=== PATIENT | female | born 1955 | race Two or more races ===

== ENCOUNTER 2024-06-09 10:39 | Outpatient (CLI) | payer OTHER | END 2024-06-09 10:41 | disposition home or self-care (01) | LOC: RAD 10:39 | PROVIDERS: ATTEND Orthopaedic Surgery | DX: M25.561 Pain in right knee (principal); M25.562 Pain in left knee; Z76.89 Persons encountering health services in other specified circumstances ==

== ENCOUNTER → 2024-08-02 09:20 | Outpatient (CLI) | payer OTHER ==
[2024-08-02 10:16] LABS: HEMATOCRIT 37.6 % (36.0-45.00); HEMOGLOBIN 12.7 g/dL (12.0-15.00); MEAN CELL VOLUME 96.6 fL (80.00-100.00); MEAN CORPUSCULAR HEMOGLOBIN 32.6 pg (27.00-32.0); MEAN CORPUSCULAR HGB CONC 33.7 g/dl (32.0-36.0); PLATELET COUNT 334 K/uL (150-450); RED BLOOD COUNT 3.89 M/uL (4.00-6.00); RED CELL DISTRIBUTION WIDTH 13.4 % (11.5-14.5)
[2024-08-02 10:31] LABS: COL EPI 122 SECONDS (82-175)
[2024-08-02 10:42] LABS: INR 1.05; PARTIAL THROMBOPLASTIN TIME 26.8 SECONDS (22.0-34.0); PROTHROMBIN TIME 11.4 SECONDS (9.0-11.5)
[2024-08-02 11:05] LABS: URINE APPEARANCE Clear; URINE BILIRRUBIN Negative (NEGATIVE); URINE BLOOD Negative; URINE COLOR Yellow; URINE GLUCOSE Negative (NEGATIVE); URINE KETONE Negative (NEGATIVE); URINE LEUKOCYTE Small; URINE NITRATE Negative; URINE PROTEIN Negative (NEGATIVE); URINE UROBILINOGEN 0.2 E.U./dl
[2024-08-02 11:06] LABS: URINE EPITHELIAL CELLS 6.1 uL (0.0-38.8); URINE WBC 25.3 uL (0.0-23.2)
[2024-08-02 11:07] LABS: ALBUMIN 3.9 gm/dL (3.4-5.0); BILIRUBIN TOTAL 1.19 mg/dL (0.3-1.2); CALCIUM 9.4 mg/dL (8.5-10.1); CREATININE SERUM 0.56 mg/dL (0.55-1.02); GFR 107.02; GLOBULINA 3.3 G/DL (2.4-3.5); POTASSIUM 3.68 mEq/L (3.5-5.1); TOTAL PROTEIN 7.2 gm/dL (6.4-8.2)
[2024-08-02 12:50] LABS: URINE RBC 1.9 uL (0.0-20.8)
== END | disposition home or self-care (01) ==
LOC: RAD 09:20
PROVIDERS: ATTEND Orthopaedic Surgery
DX: D64.9 Anemia, unspecified (principal); E88.89 Other specified metabolic disorders; D68.8 Other specified coagulation defects; N39.0 Urinary tract infection, site not specified; Z22.322 Carrier or suspected carrier of Methicillin resistant Staphylococcus aureus; E11.9 Type 2 diabetes mellitus without complications; I10 Essential (primary) hypertension; Z76.89 Persons encountering health services in other specified circumstances

== ENCOUNTER 2024-08-11 11:15 | Inpatient (IN) | payer OTHER ==
[~2024-08-11] VITALS: Ht 30.5 cm; Wt 82.1 kg
[2024-08-11] MEDS ORDERED: AVALIDE 300-121 EACH PO (13:13)
[2024-08-11] MEDS ORDERED: TOPROL XL50 M1 PO (13:13)
[2024-08-11] MEDS ORDERED: ROSUVASTATIN CA10 MG PO (13:14)
[2024-08-11] MEDS ORDERED: ANASTROZOLE1 MG PO (13:15)
[2024-08-11] MEDS ORDERED: AMLODIPINE-OLM1 EACH (13:16)
[2024-08-16] MEDS ORDERED: LIDOCAINE HCL 1%/EPINEPHRINE 20ML VIAL IJ ONE (09:15)
[2024-08-16] MEDS ORDERED: MORPHINE SULFATE 4 MG/ML CARTRIDGE IV ONE (09:15)
[2024-08-16] MEDS ORDERED: TRANEXAMIC ACID 100MG/1ML (1000MG) AMPUL IV ONE ×2 (09:15)
[2024-08-16] MEDS ORDERED: KETOROLAC TROMETHAMINE 60 MG VIAL IM ONE (09:15)
[2024-08-16] MEDS ORDERED: VANCOMYCIN HCL 1,000 MG VIAL IR ONE (09:15)
[2024-08-16] MEDS ORDERED: CEFAZOLIN SODIUM 1,000 MG VIAL IV ONE (13:45)
[2024-08-16] MEDS ORDERED: ONDANSETRON 4 MG TAB.RAPDIS PO PRN (16:15)
[2024-08-16] MEDS ORDERED: TRAMADOL HCL 50 MG TABLET PO PRN (16:15)
[2024-08-16] MEDS ORDERED: PROMETHAZINE HCL 50 MG/ML AMPUL IM PRN (16:15)
[2024-08-16] MEDS ORDERED: MEPERIDINE HCL/PF 50 MG/ML VIAL IM PRN (16:15)
[2024-08-16] MEDS ORDERED: SODIUM CHLORIDE 0.45 % 1,000 ML IV SCH (16:15)
[2024-08-16] MEDS ORDERED: ONDANSETRON HCL 2 MG/ML VIAL IV PRN (16:15)
[2024-08-16] MEDS ORDERED: PANTOPRAZOLE SODIUM 40 MG TABLET.DR PO SCH (16:27)
[2024-08-16] MEDS ORDERED: CELECOXIB 200 MG CAPSULE PO SCH (17:00)
[2024-08-16] MEDS ORDERED: ACETAMINOPHEN 325 MG TABLET PO SCH (17:00)
[2024-08-16] MEDS ORDERED: CEFAZOLIN SODIUM 1,000 MG VIAL IV SCH (17:00)
[2024-08-16] MEDS ORDERED: MORPHINE SULFATE 4 MG/ML VIAL IV ONE ×2 (17:00→20:35)
[2024-08-16] MEDS ORDERED: KETOROLAC TROMETHAMINE 10 MG TABLET PO SCH (21:00)
[2024-08-16 21:20] VITALS: BP 153/74; O2SAT 95
[2024-08-16 21:38] VITALS: BP 119/77; O2SAT 95
[2024-08-17] VITALS: BP 91/53; O2SAT 96
[2024-08-17 06:54] LABS: HEMATOCRIT 30.4 % (36.0-45.00); HEMOGLOBIN 10.2 g/dL (12.0-15.00); MEAN CELL VOLUME 95.8 fL (80.00-100.00); MEAN CORPUSCULAR HEMOGLOBIN 32.2 pg (27.00-32.0); MEAN CORPUSCULAR HGB CONC 33.7 g/dl (32.0-36.0); PLATELET COUNT 320 K/uL (150-450); RED BLOOD COUNT 3.17 M/uL (4.00-6.00)
[2024-08-17 08:00] VITALS: BP 133/86; O2SAT 97
[2024-08-17] MEDS ORDERED: ENALAPRILAT DIHYDRATE 1.25 MG/ML VIAL IV PRN (08:45)
[2024-08-17] MEDS ORDERED: RIVAROXABAN 10 MG TAB PO SCH (09:00)
[2024-08-17 12:00] VITALS: BP 133/77; O2SAT 95
[2024-08-17 15:12] LABS: ALBUMIN 3.3 gm/dL (3.4-5.0); BILIRUBIN TOTAL 1.11 mg/dL (0.3-1.2); CALCIUM 8.8 mg/dL (8.5-10.1); CREATININE SERUM 0.69 mg/dL (0.55-1.02); GFR 84.11; POTASSIUM 3.98 mEq/L (3.5-5.1); TOTAL PROTEIN 6.3 gm/dL (6.4-8.2)
[2024-08-17 16:00] VITALS: BP 124/76; O2SAT 96
[2024-08-18 00:45] VITALS: BP 123/78; O2SAT 98
[2024-08-18 07:07] LABS: HEMATOCRIT 29.7 % (36.0-45.00); HEMOGLOBIN 9.9 g/dL (12.0-15.00); MEAN CELL VOLUME 96.8 fL (80.00-100.00); MEAN CORPUSCULAR HEMOGLOBIN 32.3 pg (27.00-32.0); MEAN CORPUSCULAR HGB CONC 33.3 g/dl (32.0-36.0); PLATELET COUNT 314 K/uL (150-450); RED BLOOD COUNT 3.07 M/uL (4.00-6.00); RED CELL DISTRIBUTION WIDTH 13.2 % (11.5-14.5)
[2024-08-18] MEDS ORDERED: SENNA/DOCUSATE SODIUM 1 TAB TABLET PO SCH (09:00)
[2024-08-18 09:04] VITALS: BP 127/77; O2SAT 96
[2024-08-18 16:42] VITALS: BP 155/78; O2SAT 94
[2024-08-18] MEDS ORDERED: TRAMADOL HCL 50 MG TABLET PO PRN (18:30)
[2024-08-18] MEDS ORDERED: IRBESARTAN 300 MG TABLET PO STA (19:00)
[2024-08-18] MEDS ORDERED: HYDROCHLOROTHIAZIDE 25 MG TABLET PO STA (19:01)
[2024-08-18] MEDS ORDERED: METOPROLOL TARTRATE 50 MG TABLET PO STA (19:01)
[2024-08-18] MEDS ORDERED: AMLODIPINE BESYLATE 5 MG TABLET PO STA (19:02)
[2024-08-18 19:04] LABS: HEMATOCRIT 29.1 % (36.0-45.00); HEMOGLOBIN 9.9 g/dL (12.0-15.00); MEAN CELL VOLUME 95.7 fL (80.00-100.00); MEAN CORPUSCULAR HEMOGLOBIN 32.4 pg (27.00-32.0); MEAN CORPUSCULAR HGB CONC 33.9 g/dl (32.0-36.0); PLATELET COUNT 314 K/uL (150-450); RED BLOOD COUNT 3.04 M/uL (4.00-6.00); RED CELL DISTRIBUTION WIDTH 13.3 % (11.5-14.5)
[2024-08-18] MEDS ORDERED: METOPROLOL SUCCINATE 50 MG TAB.SR.24H PO STA (19:06)
[2024-08-18 20:07] LABS: BILIRUBIN TOTAL 1.08 mg/dL (0.3-1.2); CREATININE SERUM 0.54 mg/dL (0.55-1.02); GFR 111.61; GLOBULINA 3.3 G/DL (2.4-3.5); POTASSIUM 3.53 mEq/L (3.5-5.1); TOTAL PROTEIN 6.3 gm/dL (6.4-8.2)
[2024-08-19 01:01] VITALS: BP 114/75; O2SAT 97
[2024-08-19 08:51] VITALS: BP 125/86; O2SAT 95
[2024-08-19] MEDS ORDERED: AMLODIPINE BESYLATE 5 MG TABLET PO SCH (09:00)
[2024-08-19] MEDS ORDERED: IRBESARTAN 300 MG TABLET PO SCH (09:00)
[2024-08-19] MEDS ORDERED: HYDROCHLOROTHIAZIDE 25 MG TABLET PO SCH (09:00)
[2024-08-19] MEDS ORDERED: METOPROLOL SUCCINATE 50 MG TAB.SR.24H PO SCH (09:00)
== END 2024-08-19 16:49 | DRG 470 ==
LOC: O/R 08-16 05:45 → SURH 08-16 09:00
PROVIDERS: Internal Medicine; ADMIT Orthopaedic Surgery; ATTEND Orthopaedic Surgery
PROC: 0QUF0JZ Supplement Left Patella with Synthetic Substitute, Open Approach (ICD-10-PCS; 2024-08-16)
PROC: 4A12X4Z Monitoring of Cardiac Electrical Activity, External Approach (ICD-10-PCS; 2024-08-16)
PROC: 0SRD0JZ Replacement of Left Knee Joint with Synthetic Substitute, Open Approach (ICD-10-PCS; principal; 2024-08-16 09:00)
DX: M17.12 Unilateral primary osteoarthritis, left knee (principal)

== ENCOUNTER 2024-12-06 10:29 | Outpatient (CLI) | payer OTHER ==
[~2024-12-06 10:29] MED LIST: AMLODIPINE-OLM1 EACH; ANASTROZOLE1 MG PO; AVALIDE 300-121 EACH PO; ROSUVASTATIN CA10 MG PO; TOPROL XL50 M1 PO
[2024-12-06 11:11] LABS: URINE APPEARANCE Clear; URINE BILIRRUBIN Negative (NEGATIVE); URINE BLOOD Negative; URINE COLOR Yellow; URINE GLUCOSE Negative (NEGATIVE); URINE KETONE Negative (NEGATIVE); URINE LEUKOCYTE Small; URINE NITRATE Negative; URINE UROBILINOGEN 0.2 E.U./dl
[2024-12-06 11:18] LABS: URINE BACTERIA 141.5 uL (0.0-1933); URINE EPITHELIAL CELLS 7.3 uL (0.0-38.8); URINE RBC 5.1 uL (0.0-20.8); URINE WBC 32.2 uL (0.0-23.2)
[2024-12-06 11:20] LABS: BASO % 0.9 % (0.1-1.2); EOS # 0.20 (0.04-0.54); EOS % 2.7 % (0.7-7.0); LYMPH # 2.20 (1.18-3.74); LYMPH % 29.8 % (19.3-53.1); MEAN PLATELET VOLUME 9.40 fl (9.4-12.4); MONO # 0.81 (0.24-0.82); MONO % 11.0 % (4.7-12.5); NEUT # 4.09 (1.56-6.13); NEUT % 55.3 % (34.0-71.1); RED CELL DISTRIBUTION WIDTH 15.0 % (11.6-14.4)
[2024-12-06 11:29] LABS: URINE CAST 0.00 uL (0.0-1.40); URINE PROTEIN 100 (NEGATIVE)
[2024-12-06 12:24] LABS: ALT/SGPT 24.0 U/L (12-78); AST/SGOT 13.0 U/L (15-37); BILIRUBIN TOTAL 0.82 mg/dL (0.3-1.2); BUN CREA RATIO 38.0 (7.0-25.0); CREATININE SERUM 0.64 mg/dL (0.55-1.02); GFR 91.47; GLOBULINA 3.1 G/DL (2.4-3.5); GLUCOSE FASTING 99.0 mg/dL (65-100); OSMOLALITY SERUM 287.0 MOSM/KG (275-295)
[2024-12-06 12:30] LABS: COL EPI 124 SECONDS (82-175)
[2024-12-06 12:50] LABS: INR 1.02
== END 2024-12-06 10:39 | disposition home or self-care (01) ==
LOC: RAD 10:29
PROVIDERS: ATTEND Orthopaedic Surgery
DX: D64.9 Anemia, unspecified (principal); E88.9 Metabolic disorder, unspecified; D68.8 Other specified coagulation defects; N39.0 Urinary tract infection, site not specified; Z22.322 Carrier or suspected carrier of Methicillin resistant Staphylococcus aureus; E11.9 Type 2 diabetes mellitus without complications; Z76.89 Persons encountering health services in other specified circumstances; I10 Essential (primary) hypertension

== ENCOUNTER 2024-12-17 08:15 | Inpatient (IN) | payer OTHER ==
[~2024-12-17] VITALS: Ht 154.9 cm; Wt 79.4 kg
[2024-12-21] MEDS ORDERED: CEFAZOLIN SODIUM 1,000 MG VIAL ONE ×2 (09:19→20:11)
[2024-12-21] MEDS ORDERED: TRANEXAMIC ACID 100MG/1ML (1000MG) AMPUL ONE ×2 (09:19→11:20)
[2024-12-21] MEDS ORDERED: KETOROLAC TROMETHAMINE 60 MG VIAL IM ONE (11:18)
[2024-12-21] MEDS ORDERED: LIDOCAINE HCL 1%/EPINEPHRINE 20ML VIAL IJ ONE (11:19)
[2024-12-21] MEDS ORDERED: VANCOMYCIN HCL 1,000 MG VIAL ONE (11:19)
[2024-12-21] MEDS ORDERED: BUPIVACAINE HCL/MPF 0.5% 30ML VIAL ONE (11:19)
[2024-12-21] MEDS ORDERED: MORPHINE SULFATE 4 MG/ML CARTRIDGE IV ONE (15:00)
[2024-12-21] MEDS ORDERED: PROMETHAZINE HCL 50 MG/ML AMPUL IM PRN (15:15)
[2024-12-21] MEDS ORDERED: ONDANSETRON HCL 2 MG/ML VIAL IV PRN (15:15)
[2024-12-21] MEDS ORDERED: TRAMADOL HCL 50 MG TABLET PO PRN (15:15)
[2024-12-21] MEDS ORDERED: MEPERIDINE HCL/PF 50 MG/ML VIAL IM PRN (15:15)
[2024-12-21] MEDS ORDERED: SODIUM CHLORIDE 0.45 % 1,000 ML IV SCH (15:15)
[2024-12-21] MEDS ORDERED: ONDANSETRON 4 MG TAB.RAPDIS PO PRN (15:15)
[2024-12-21] MEDS ORDERED: MORPHINE SULFATE 2 MG/ML CARTRIDGE IV ONE ×2 (16:40→20:20)
[2024-12-21] MEDS ORDERED: CEFAZOLIN SODIUM 1,000 MG VIAL IV SCH (17:00)
[2024-12-21] MEDS ORDERED: CELECOXIB 200 MG CAPSULE PO SCH (17:00)
[2024-12-21] MEDS ORDERED: ACETAMINOPHEN 325 MG TABLET PO SCH (17:00)
[2024-12-21] MEDS ORDERED: PANTOPRAZOLE SODIUM 40 MG TABLET.DR PO SCH (17:00)
[2024-12-21] MEDS ORDERED: KETOROLAC TROMETHAMINE 10 MG TABLET PO ONE (20:29)
[2024-12-21] MEDS ORDERED: ACETAMINOPHEN 325 MG TABLET PO ONE (20:30)
[2024-12-21] MEDS ORDERED: KETOROLAC TROMETHAMINE 10 MG TABLET PO SCH (21:00)
[2024-12-21 21:27] VITALS: BP 126/83; O2SAT 94
[2024-12-22] VITALS: BP 124/68; O2SAT 94
[2024-12-22 06:50] LABS: BASO % 0.4 % (0.1-1.2); EOS # 0.04 (0.04-0.54); EOS % 0.4 % (0.7-7.0); LYMPH # 1.22 (1.18-3.74); LYMPH % 13.4 % (19.3-53.1); MEAN PLATELET VOLUME 9.90 fl (9.4-12.4); MONO # 1.07 (0.24-0.82); MONO % 11.7 % (4.7-12.5); NEUT # 6.71 (1.56-6.13); NEUT % 73.7 % (34.0-71.1); RED CELL DISTRIBUTION WIDTH 14.3 % (11.6-14.4)
[2024-12-22] MEDS ORDERED: RIVAROXABAN 10 MG TAB PO SCH (09:00)
[2024-12-22 09:26] VITALS: BP 125/81; O2SAT 95
[2024-12-22] MEDS ORDERED: IRBESARTAN 300 MG TABLET PO SCH (11:26)
[2024-12-22] MEDS ORDERED: AMLODIPINE BESYLATE 5 MG TABLET PO SCH (11:26)
[2024-12-22] MEDS ORDERED: HYDROCHLOROTHIAZIDE 12.5 MG CAPSULE PO SCH (11:27)
[2024-12-22] MEDS ORDERED: METOPROLOL SUCCINATE 50 MG TAB.SR.24H PO SCH (11:27)
[2024-12-22] MEDS ORDERED: ROSUVASTATIN CALCIUM 10 MG TABLET PO SCH (11:28)
[2024-12-22] MEDS ORDERED: ENALAPRILAT DIHYDRATE 1.25 MG/ML VIAL IV PRN (11:30)
[2024-12-22 17:44] VITALS: BP 133/79; O2SAT 96
[2024-12-23 01:21] VITALS: BP 108/61; O2SAT 100
[2024-12-23 06:58] LABS: BASO % 0.5 % (0.1-1.2); EOS # 0.21 (0.04-0.54); EOS % 2.1 % (0.7-7.0); LYMPH # 1.23 (1.18-3.74); LYMPH % 12.5 % (19.3-53.1); MEAN PLATELET VOLUME 9.90 fl (9.4-12.4); MONO # 1.10 (0.24-0.82); MONO % 11.2 % (4.7-12.5); NEUT # 7.20 (1.56-6.13); NEUT % 73.2 % (34.0-71.1); RED CELL DISTRIBUTION WIDTH 14.4 % (11.6-14.4)
[2024-12-23] MEDS ORDERED: SENNA/DOCUSATE SODIUM 1 TAB TABLET PO SCH (09:00)
[2024-12-23 16:00] VITALS: BP 124/79; O2SAT 95
== END 2024-12-23 20:00 | DRG 470 ==
LOC: SURH 12-21 07:00 → O/R 12-21 10:06 → SURH 12-21 19:34
PROVIDERS: ADMIT Orthopaedic Surgery; ATTEND Orthopaedic Surgery
PROC: 0SRC0J9 Replacement of Right Knee Joint with Synthetic Substitute, Cemented, Open Approach (ICD-10-PCS; principal; 2024-12-21 07:00)
DX: M17.11 Unilateral primary osteoarthritis, right knee (principal)